=== PATIENT | male | born 1945 | race Caucasian/White ===

== ENCOUNTER 2022-02-26 09:05 | Emergency (ER) | payer MEDICARE ==
[~2022-02-26] VITALS: Ht 170.2 cm; Wt 86.4 kg
[2022-02-26 09:18] VITALS: TEMP 98.4
[2022-02-26 11:45] VITALS: BP 143/85; PULSE 69
== END 2022-02-26 11:45 | disposition home or self-care (01) ==
LOC: COL.ER 09:05
DX: S52.512A Displaced fracture of left radial styloid process, initial encounter for closed fracture (principal); W01.0XXA Fall on same level from slipping, tripping and stumbling without subsequent striking against object, initial encounter